=== PATIENT | female | born 1955 | race Caucasian/White ===

== ENCOUNTER 2022-11-05 09:17 | Emergency (ER) | payer MEDICARE, MEDICAID ==
[~2022-11-05] VITALS: Ht 157.5 cm; Wt 86.4 kg
--- NOTE | 2022-11-05 15:11 | NUR ---
KENYA AT BEDSIDE
[2022-11-05 15:38] LABS: CLARITY,URINE CLOUDY (Clear); COLOR,URINE YELLOW (Yellow); GLUCOSE, URINE NEGATIVE (Neg); KETONES,URINE NEGATIVE (Neg); LEUKOCYTE ESTERASE ,URINE SMALL (Neg); NITRITES, URINE NEGATIVE (Neg); OCCULT BLOOD,URINE LARGE (Neg); PROTEIN,URINE >=300 mg/dl (Neg)
[2022-11-05 15:40] LABS: UA COLLECTION TYPE CLN CATCH MIDSTREAM
[2022-11-05] MEDS ORDERED: cyclobenzaprine 10mg tablet PO ONE (15:50)
[2022-11-05] MEDS ORDERED: HYDROcodone/acetaminophen 5mg/325mg tablet PO ONE (15:50)
[2022-11-05 15:55] LABS: WBC,URINE TNTC /HPF (0-4)
[2022-11-05 15:56] LABS: BACTERIA,URINE 4+ /HPF (Neg); SQUAMOUS EPITHELIAL CELL,UR NONE SEEN /LPF (FEW)
[2022-11-05] MEDS ORDERED: SULF1TAB49 PO (16:29)
[2022-11-05 17:02] VITALS: BP 145/86
== END 2022-11-05 17:13 | disposition home or self-care (01) ==
LOC: ER 09:17
DX: N39.0 Urinary tract infection, site not specified (principal); Z79.899 Other long term (current) drug therapy
CPT/HCPCS: 81001; 87077; 87088; 87186; 99283